=== PATIENT | male | born 1965 | race Caucasian/White ===

== ENCOUNTER 2017-10-08 08:06 | Day surgery (SDC) | payer OTHER ==
[2017-10-08] MEDS: NS 1,000 ML IV ×2 (08:30)
[2017-10-08] MEDS ORDERED: PROPOFOL 200 MG/20 ML VIAL As Ordered ×4 (08:56→08:57)
[2017-10-08] MEDS ORDERED: LIDOCAINE 2% INJ 100 MG/5 ML SDV (FOR ANES.) As Ordered ×2 (09:02)
== END 2017-10-08 10:13 | disposition home or self-care (01) ==
LOC: M OPP 08:06
DX: Z12.11 Encounter for screening for malignant neoplasm of colon (principal); D12.3 Benign neoplasm of transverse colon; K62.1 Rectal polyp; K62.5 Hemorrhage of anus and rectum; I10 Essential (primary) hypertension; E78.5 Hyperlipidemia, unspecified; R19.7 Diarrhea, unspecified; K59.00 Constipation, unspecified; K21.9 Gastro-esophageal reflux disease without esophagitis; E66.9 Obesity, unspecified; F17.200 Nicotine dependence, unspecified, uncomplicated; Z79.899 Other long term (current) drug therapy
CPT/HCPCS: 45385

== ENCOUNTER → 2021-04-22 | Outpatient (CLI) | payer OTHER ==
[~2021-04-22] MED LIST: FISH1000 PO; GEMF600T5 PO; HYDR-3490 PO; LISI40TA4 PO; VITA-122 PO
--- NOTE | 2021-05-22 11:42 | REP ---
INDICATION: ABN FINDING OF LUNG. COMPARISON: [facility] 01/18/2021.. TECHNIQUE: CT chest performed without the use of intravenous contrast. Sagittal and coronal reconstruction images are performed. FINDINGS: Lungs: There is a 3 mm nodule in the left lower lobe which is stable. No new nodule or infiltrate is seen. There are mild emphysematous and fibrotic changes bilaterally. Mediastinum: No gross adenopathy. Reina: No gross adenopathy. Axilla: No gross adenopathy. Pleura: No effusion. Heart: Not enlarged. Thoracic aorta: No aneurysm. Upper abdominal structures: Left adrenal nodules are present which represent adenomas, the largest measures 2.2 cm in diameter.. Visualized osseous structures: There are old left rib fractures. IMPRESSION: Lung rads category 2, benign findings. Stable 3 mm nodule left lower lobe on image 81 of 116. No other nodule or infiltrate is seen. Recommend follow-up CT chest, lung cancer screening, in 1 year. <Electronically signed by Wesley Hernandez > 05/22/21 [id number]
== END ==
LOC: M RAD 08:12
PROVIDERS: ATTEND Physician Assistant
DX: R91.1 Solitary pulmonary nodule (principal)

== ENCOUNTER → 2021-05-14 | Outpatient (CLI) | payer OTHER ==
--- NOTE | 2021-05-14 08:14 | PFTRPT ---
Height: 74.00 Inches Weight: 250.00 Lbs BSA: 2.39 Diagnosis: R06.00 DATE: 05/14/2021 ORDERING PHYSICIAN: CARMELA Espana Pre and post bronchodilator studies have excellent technical quality. Forced vital capacity is reduced. FEV1 is in proportion. Obstructive index is therefore normal. Expiratory limit of the flow-volume loop suggests some nonspecific limitation and cannot rule out suboptimal effort. No significant bronchodilator response is identified. Total lung capacity is normal. Residual volume does suggest a degree of air trapping. Diffusing capacity is normal. Hemoglobin is acceptable at 12.9. Airway resistance and conductance are normal. IMPRESSION: Suspect a degree of air trapping. Please correlate clinically. MTDD
== END ==
LOC: M CARPUL 07:35
PROVIDERS: ATTEND Physician Assistant
DX: R06.00 Dyspnea, unspecified (principal)

== ENCOUNTER → 2021-09-19 | Outpatient (CLI) | payer OTHER ==
[~2021-09-19] MED LIST changes: +ISOVUE-370 76% 100ML VIAL As Ordered ONE
== END ==
LOC: M RAD 08:23
PROVIDERS: ATTEND Physician Assistant
DX: E27.8 Other specified disorders of adrenal gland (principal)
CPT/HCPCS: 74178; Q9967

== ENCOUNTER → 2022-05-14 | Outpatient (CLI) | payer OTHER ==
[~2022-05-14] MED LIST changes: -ISOVUE-370 76% 100ML VIAL As Ordered ONE
== END ==
LOC: M RAD 08:37
PROVIDERS: ATTEND Physician Assistant
DX: Z12.2 Encounter for screening for malignant neoplasm of respiratory organs (principal); F17.210 Nicotine dependence, cigarettes, uncomplicated

== ENCOUNTER → 2022-08-07 | Outpatient (REF) | LOC: M PLAIMG 11:37 | PROVIDERS: ATTEND Internal Medicine | DX: R06.02 Shortness of breath (principal) ==

== ENCOUNTER → 2023-05-27 | Outpatient (CLI) | payer OTHER | LOC: M RAD 08:18 | PROVIDERS: ATTEND Physician Assistant | DX: Z87.891 Personal history of nicotine dependence (principal) ==

== ENCOUNTER 2023-09-03 10:14 | Day surgery (SDC) | payer OTHER ==
[~2023-09-03] VITALS: Ht 188 cm; Wt 116.7 kg
[~2023-09-03 10:14] MED LIST changes: +ATOR1TAB21 PO; +FENO145T7 PO; +FLUT1BLS3 IH; +LOPI600T PO; +METF500T13 PO; +OMEG10002 PO; +PANT40TA29 PO; +PRAZ2CAP PO; +PROA1AER2 INH; +VITA100093 PO
[2023-09-03] MEDS: NS 1,000 ML IV ONE (11:00)
[2023-09-03] MEDS ORDERED: propofoL 200 MG/20 ML VIAL As Ordered ONE (11:27)
[2023-09-03] MEDS ORDERED: LIDOCAINE 2% 100MG/5ML SDV (FOR ANES.) As Ordered ONE (11:27)
[2023-09-03 11:54] VITALS: TEMP 96.6
[2023-09-03 12:20] VITALS: BP 168/82; O2SAT 98
== END 2023-09-03 12:24 | disposition home or self-care (01) ==
LOC: M OPP 10:14
PROVIDERS: ATTEND Surgery
DX: Z12.11 Encounter for screening for malignant neoplasm of colon (principal); Z86.010 Personal history of colon polyps; D12.6 Benign neoplasm of colon, unspecified; K57.30 Diverticulosis of large intestine without perforation or abscess without bleeding; F17.200 Nicotine dependence, unspecified, uncomplicated; E11.9 Type 2 diabetes mellitus without complications; Z79.02 Long term (current) use of antithrombotics/antiplatelets; Z79.899 Other long term (current) drug therapy

== ENCOUNTER → 2024-09-21 | Outpatient (CLI) | payer OTHER | LOC: M RAD 07:55 | PROVIDERS: ATTEND Physician Assistant | DX: Z87.891 Personal history of nicotine dependence (principal) ==

== ENCOUNTER → 2025-03-08 | Outpatient (CLI) | payer OTHER ==
[~2025-03-08] MED LIST changes: +LISI40TA10 PO; -LISI40TA4 PO
== END ==
LOC: M SOG 13:15
PROVIDERS: ATTEND Neuromusculoskeletal Medicine, Sports Medicine
DX: M25.551 Pain in right hip (principal); M25.552 Pain in left hip

== ENCOUNTER → 2025-04-27 | Outpatient (CLI) | payer OTHER | LOC: M PLARAD 14:58 | PROVIDERS: ATTEND Nurse Practitioner Family | DX: M51.16 Intervertebral disc disorders with radiculopathy, lumbar region (principal); M47.816 Spondylosis without myelopathy or radiculopathy, lumbar region; R60.0 Localized edema ==